=== PATIENT | male | born 2000 | race Caucasian/White ===

== ENCOUNTER 2019-01-14 00:57 | Emergency (ER) | payer OTHER ==
--- NOTE | 2019-01-14 01:48 | EDPHY ---
H & P Stated Complaint: FELL HIT HEAD, LAC L SIDE HEAD Time Seen by Provider: 01/14/19 01:48 HPI/ROS: HPI CHIEF COMPLAINT: Left orbital head laceration fall, head strike HISTORY OF PRESENT ILLNESS: This patient is a 18-year-old male, is otherwise healthy denies any significant medical history except for anxiety, presents emergency room after he fell out of bed he states his head struck the window sill from 2 ft in the air he states he was struck "very hard" he states he has a left-sided orbital left-sided headache. Sustained a left lateral orbital laceration present. No globe trauma. Complains of left-sided headache. Denies any vomiting or alcohol tonight, denies neck pain, denies any other areas of injury. He reports to me his tetanus shot is up-to-date. Past Medical History: Denies significant medical history except for anxiety Past Surgical History: Denies significant surgical history Social History: Denies drugs alcohol tobacco tonight. [employer] student. Family History: Noncontributory ROS REVIEW OF SYSTEMS: 10 Systems were reviewed and negative with the exception of the elements mentioned in the history of present illness. Exam Constitutional triage nursing summary reviewed, vital signs reviewed, awake/ alert. Eyes normal conjunctivae and sclera, EOMI, PERRLA. HENT head neck face: Tender palpation over the left lateral orbit, no crepitus , globes are intact, send palpation over left temporal region, otherwise atraumatic head and neck exam, over the left lateral orbit there is a small 3 cm laceration, extraocular movements are intact, moist mucus membranes, no epistaxis, neck supple/ no meningismus, no raccoon eyes. Respiratory clear to auscultation bilaterally, normal breath sounds, no respiratory distress, no wheezing. Cardiovascular rate normal, regular rhythm, no murmur, no edema, distal pulses normal. Gastrointestinal soft, non-tender, no rebound, no guarding, normal bowel sounds, no distension, no pulsatile mass. Genitourinary no CVA tenderness. Musculoskeletal no midline vertebral tenderness, full range of motion, no calf swelling, no tenderness of extremities, no meningismus, good pulses, neurovascularly intact. Skin pink, warm, & dry, no rash, skin atraumatic. Neurologic awake, alert and oriented x 3, AAOx3, moves all 4 extremities equally, motor intact, sensory intact, CN II-XII intact, normal cerebellar, normal vision, normal speech. Psychiatric normal mood/affect. Heme/Lymph/Immune no lymphadenopathy. Differential Diagnosis: Includes but is not limited to in a particular order head trauma, facial trauma, facial bone fracture, orbital bone fracture, laceration, soft tissue injury, hematoma Medical Decision Making: Plan for this patient CT scan maxillofacial without contrast due to trauma and orbital pain. Rule out orbital fracture. Additionally clean his wound, and then his laceration will need to be repaired. Re-evaluation: CT scan maxillofacial: Faxed me by direct Radiology at time 2:45 a.m., no acute facial fracture. Laceration Repair Procedure: Verbal Consent was obtained, Under sterile conditions, The patient had lidocaine with epinephrine used approximately 4ccs to local anesthetize the 3CM Left eyebrow Laceration. The wound was copiously irrigated with sterile fluid, the wound was explored for foreign bodies there were none visualized, the wound was explored with a sterile glove to the base. There are no deep structures involved, including no arterial injury. THREE 6.O PROLENE interrupted Sutures were placed in this patient's laceration. He had good close approximation of the wound edges. He Tolerated this well. Patient understands to have sutures out in 7 days. Additionally watch for signs of infection this includes redness, swelling, pus, fever, questions concerns about his wound. 3 sutures were placed. Good approximation of the wound edges. Wound was copiously irrigating clean prior to suturing. Patient understands return emergency room if he has any further questions or concerns. Source: Patient - Personal History Current Tetanus Diphtheria and Acellular Pertussis (TDAP): Yes - Medical/Surgical History Hx Asthma: No Hx Chronic Respiratory Disease: No Hx Diabetes: No Hx Cardiac Disease: No Hx Renal Disease: No Hx Cirrhosis: No Hx Alcoholism: No Hx HIV/AIDS: No Hx Splenectomy or Spleen Trauma: No Other PMH: APPY, EAR TUBES - Social History Smoking Status: Never smoked Constitutional: Initial Vital Signs Temperature (C) 37.0 C 01/14/19 01:09 Heart Rate 72 01/14/19 01:09 Respiratory Rate 16 01/14/19 01:09 Blood Pressure 130/99 H 01/14/19 01:09 O2 Sat (%) 97 01/14/19 01:09 O2 Delivery Mode Room Air Allergies/Adverse Reactions: latex Allergy (Verified 01/14/19 01:07) Home Medications: Medication Instructions Recorded FLUoxetine 01/14/19 Medical Decision Making - Data Points Medications Given: Discontinued Medications Acetaminophen (Tylenol) 1,000 mg PO EDNOW ONE Stop: 01/14/19 01:52 Last Admin: 01/14/19 01:56 Dose: 1,000 mg Departure - Departure Disposition: Home, Routine, Self-Care Clinical Impression: Laceration Condition: Good Instructions: Care For Your Stitches (ED), Laceration (ED) Additional Instructions: 1. Your sutures need to be removed in 7 days. 2. Keep your laceration clean, dry, and protected. 3. Warm soapy water if fine on it in 24 hours. 4. Watch for signs of infection, redness, swelling, pain, drainage. 5. Return to the ER if worsening symptoms, fever, not going well, questions/ concerns. Referrals: MINOO WILLARD MD [Other] - As per Instructions
[2019-01-14] MEDS ORDERED: ACETAMINOPHEN 500 MG TAB PO ONE (01:51)
[2019-01-14 03:38] VITALS: BP 123/75
== END 2019-01-14 04:03 | disposition home or self-care (01) ==
PROC: 0HQ1XZZ Repair Face Skin, External Approach (ICD-10-PCS; principal; 2019-01-14)
DX: S01.112A Laceration without foreign body of left eyelid and periocular area, initial encounter (principal); F41.9 Anxiety disorder, unspecified; W06.XXXA Fall from bed, initial encounter; Y92.003 Bedroom of unspecified non-institutional (private) residence as the place of occurrence of the external cause